=== PATIENT | male | born 1985 | race Caucasian/White ===

== ENCOUNTER → 2016-12-07 | Outpatient (CLI) | payer OTHER ==
--- NOTE | 2016-12-07 11:41 | REP ---
LEFT FOOT COMPLETE: 12/07/2016. CLINICAL HISTORY: Trauma. 5th metatarsal pain. Four views are provided with no prior pertinent study. The MCP and IP joints are intact. The metatarsals and phalanges without fracture or avulsion. There is a bipartite sesamoid along the medial aspect of the distal head of the 1st metatarsal as anatomic variation. Tarsal bones and hind foot intact. Subtalar joints are intact. No heel spurs. IMPRESSION: 1. There is no visible or displaced fracture, avulsion, subluxation or focal bone lesion. Signed by Rufus Wing MD 12/07/2016 07:34 P
== END ==
LOC: M WUC 10:22
PROVIDERS: ATTEND Physician Assistant
DX: M79.672 Pain in left foot (principal)

== ENCOUNTER → 2021-03-08 | Outpatient (REF) | payer OTHER | LOC: M LAB REF 16:20 | PROVIDERS: ATTEND Physician Assistant Medical | DX: J06.9 Acute upper respiratory infection, unspecified (principal); Z20.828 Contact with and (suspected) exposure to other viral communicable diseases ==